=== PATIENT | female | born 1990 | race Caucasian/White ===

== ENCOUNTER → 2018-04-03 15:49 | Outpatient (CLI) | payer OTHER, SELFPAY | PROVIDERS: Family Provider Family Medicine; PCP Family Medicine | DX: Z23 Encounter for immunization (principal) | CPT/HCPCS: 90471; 90686 ==

== ENCOUNTER → 2018-08-06 07:12 | Outpatient (CLI) | payer OTHER, SELFPAY ==
--- NOTE | 2018-08-06 | DI.US.S_ITS ---
PROCEDURE: US OB <= 14 WEEKS FETUS INDICATIONS: SIZE AND DATING OUTSIDE/PRIOR DATING DATA: Last menstrual period (LMP): 06/10/18. LMP-based estimated date of delivery (NANCY): 03/17/19. First dating scan (date and location): This study, 08/06/18. Estimated date of delivery (NANCY) from first dating scan: 03/17/19. TECHNIQUE: Real-time scanning was performed of the fetus and maternal pelvic organs, with image documentation. Endovaginal scanning was also performed to better visualize the fetus and maternal ovaries. COMPARISON: None. FINDINGS: Embryo: There is a single living intrauterine gestation with crown-rump length of 1.7 cm correlated with a gestational age of 8 weeks 1 day, with heart rate 158 beats per minute. Measurement variability in dating: +/- 4 weeks by LMP, +/- 7 days by mean sac diameter (use before 6 weeks gestation if crown-rump length not able to be measured), +/- 5 days by crown-rump length (up to 8 weeks 6 days gestation), +/- 7 days by crown-rump length (up to 13 weeks 6 days gestation). Maternal organs: Ovaries normal considering gestational status. Limited images through the kidneys demonstrate no hydronephrosis. IMPRESSION: Single living intrauterine gestation with gestational age estimate currently 8 weeks 1 day with delivery date projected be centered on 03/17/19, plus or -5 days. Followup anatomic survey at approximately 21 weeks gestation is recommended. Dictated by: Jose R Vyas M.D. on 08/06/2018 at 10:12 Approved by: Jose R Vyas M.D. on 08/06/2018 at 10:14
== END ==
PROVIDERS: Family Provider Family Medicine; PCP Family Medicine; Visit Provider Family Medicine
DX: Z34.91 Encounter for supervision of normal pregnancy, unspecified, first trimester (principal); Z3A.08 8 weeks gestation of pregnancy
CPT/HCPCS: 76801

== ENCOUNTER → 2018-10-28 10:25 | Outpatient (CLI) | payer OTHER, SELFPAY ==
--- NOTE | 2018-10-28 | DI.US.S_ITS ---
PROCEDURE: US OB >= 14 WEEKS FETUS INDICATIONS: ANATOMY SCAN OUTSIDE/PRIOR DATING DATA: Last menstrual period (LMP): 06/10/18. LMP-based estimated date of delivery (NANCY): 03/17/19. First dating scan (date and location): 08/06/18, [facility]. Estimated date of delivery (NANCY) from first dating scan: 03/17/19. TECHNIQUE: Real-time scanning was performed of the fetus, with image documentation and biometric measurements. COMPARISON: None. FINDINGS: General: A single living intrauterine gestation is present. Presentation: Cephalic. Placenta: Placental position is posterior and fundal, without previa. Amniotic fluid index: 15.1 cm , normal range is 5-24 cm. heart rate: 150 beats per minute. Maternal cervical canal: 3.9 cm long. Normal lower limit is 2.5 cm. biometrics: Biparietal diameter: 4.7 cm, 20 weeks one day Head circumference: 17.4 cm, 19 weeks 6 days Abdominal circumference: 16.2 cm, 21 weeks 2 days Femur length: 2.9 cm, 19 weeks zero days Estimated gestational age from initial scan: not applicable. Composite gestational age from present scan: 19 weeks 6 days Estimated weight and percentile: 338 g, 57th percentile Measurement variability for biometric dating: +/- 7 days from 14 weeks to 15 weeks 6 days gestation, +/- 10 days from 16 weeks to 21 weeks 6 days gestation, +/- 2 weeks from 22 weeks to 27 weeks 6 days gestation, +/- 3 weeks for 28 weeks gestation or later. weight reference: 4500 g or EFW >90/95% is considered macrosomia or large for gestational age. EFW <10% is small for gestational age. EFW 5% or less is considered intra-uterine growth restriction. Anatomic survey: Neuro: Ventricles are non-dilated at less than 10 mm. There is a complex left choroid plexus cyst measuring 0.7 x 0.3 x 0.3 cm. There is a complex right choroid plexus cyst measuring 0.6 x 0.5 x 0.4 cm. Cisterna magna is normal at 3-11 mm. Cerebellum is normal in size and morphology. Nuchal skin fold: Normal at less than 6 mm between 14-21 weeks gestational age. Face: Nose and lips, facial profile are normal. Spine: No evidence for spina bifida. Heart: 4-chambered heart is present, with normal ventricular outflow tracts. Diaphragm: Diaphragm is intact. Stomach: Left-sided stomach is present. Kidneys: No hydronephrosis. Normal is less than 5 mm in 2nd trimester, less than 7 mm in 3rd trimester. Cord: 3-vessel cord has orthotopic insertion. Bladder: Normal in size. Extremities: All 4 extremities identified. IMPRESSION: 1. Living second trimester intrauterine . Ultrasound age is one day less than clinical age. 2. Bilateral choroid plexus cysts. 3. anatomic survey otherwise unremarkable. Dictated by: Saurabh Pino M.D. on 10/28/2018 at 18:23 Approved by: Saurabh Pino M.D. on 10/28/2018 at 18:29
== END ==
PROVIDERS: PCP Family Medicine; Visit Provider Family Medicine
DX: Z36.89 Encounter for other specified antenatal screening (principal); Z3A.19 19 weeks gestation of pregnancy
CPT/HCPCS: 76811

== ENCOUNTER → 2019-02-20 07:11 | Outpatient (CLI) | payer OTHER, SELFPAY ==
--- NOTE | 2019-02-20 | DI.US.S_ITS ---
PROCEDURE: US OB LIMITED INDICATIONS: MEASURING SMALLER THAN DATES OUTSIDE/PRIOR DATING DATA: Last menstrual period (LMP): 06/10/18. LMP-based estimated date of delivery (NANCY): 03/17/19. First dating scan (date and location): 08/06/18. Estimated date of delivery (NANCY) from first dating scan: 03/17/19. TECHNIQUE: Real-time scanning was performed of the fetus, with image documentation and biometric measurements. Endovaginal scanning: Not needed for this study COMPARISON: Prior OB ultrasound 08/06/18 and also 10/28/18. FINDINGS: General: A single living intrauterine gestation is present. Presentation: Vertex. Placenta: Placental position is posterior grade 2, without previa. Amniotic fluid index: 11.3 cm, normal range is 5-24 cm. heart rate: 132 beats per minute. biometrics: Biparietal diameter: 8.6 cm, 34 weeks 6 days Head circumference 31.0 cm, 34 weeks 5 days Abdominal circumference: 30.3 cm, 34 weeks 2 days Femur length: 6.4 cm, 33 weeks 2 days Estimated gestational age from initial scan: 36 weeks 3 days Composite gestational age from present scan: 34 weeks 2 days Estimated weight and percentile: 2338 g, lower 6th percentile Measurement variability for biometric dating: +/- 7 days from 14 weeks to 15 weeks 6 days gestation, +/- 10 days from 16 weeks to 21 weeks 6 days gestation, +/- 2 weeks from 22 weeks to 27 weeks 6 days gestation, +/- 3 weeks for 28 weeks gestation or later. weight reference: 4500 g or EFW >90/95% is considered macrosomia or large for gestational age. EFW <10% is small for gestational age. EFW 5% or less is considered intra-uterine growth restriction. Other: Not applicable. IMPRESSION: The current estimated weight is at the low 6th percentile, but overall there has been appropriate interval growth with reference to prior OB ultrasound studies. Estimated date of delivery is centered on 03/17/19. No anomalies seen. Dictated by: Jose R Vyas M.D. on 02/20/2019 at 8:28 Approved by: Jose R Vyas M.D. on 02/20/2019 at 8:39
== END ==
PROVIDERS: PCP Family Medicine; Visit Provider Family Medicine
DX: Z36.4 Encounter for antenatal screening for fetal growth retardation (principal); Z3A.34 34 weeks gestation of pregnancy
CPT/HCPCS: 76815

== ENCOUNTER → 2019-02-23 17:22 | Outpatient (ROUT) | payer OTHER, SELFPAY | PROVIDERS: PCP Family Medicine; Visit Provider Family Medicine | DX: Z34.00 Encounter for supervision of normal first pregnancy, unspecified trimester (principal) | CPT/HCPCS: 87081 ==

== ENCOUNTER → 2019-03-10 07:09 | Outpatient (CLI) | payer OTHER, SELFPAY ==
--- NOTE | 2019-03-10 | DI.US.S_ITS ---
PROCEDURE: US OB LIMITED INDICATIONS: SGA OUTSIDE/PRIOR DATING DATA: Last menstrual period (LMP): 06/10/18. LMP-based estimated date of delivery (NANCY): 03/17/19. First dating scan (date and location): 08/06/18. Estimated date of delivery (NANCY) from first dating scan: 03/17/19. TECHNIQUE: Real-time scanning was performed of the fetus, with image documentation and biometric measurements. Endovaginal scanning: No COMPARISON: [facility], OB LIMITED, 02/20/2019, 7:27. FINDINGS: General: A single living intrauterine gestation is present. Presentation: Vertex. Placenta: Placental position is left posterior, without previa. Amniotic fluid index: 8.0 cm, normal range is 5-24 cm. heart rate: 143 beats per minute. Maternal cervical canal: Not well-visualized biometrics: Biparietal diameter: 36 weeks 6 days Head circumference: 36 weeks 3 days Abdominal circumference: 37 weeks 2 days Femur length: 35 weeks 6 days Estimated gestational age from initial scan: 39 weeks 0 days Composite gestational age from present scan: 36 weeks 4 days Estimated weight and percentile: Preserved arteriogram; 19 percentile Measurement variability for biometric dating: +/- 7 days from 14 weeks to 15 weeks 6 days gestation, +/- 10 days from 16 weeks to 21 weeks 6 days gestation, +/- 2 weeks from 22 weeks to 27 weeks 6 days gestation, +/- 3 weeks for 28 weeks gestation or later. weight reference: 4500 g or EFW >90/95% is considered macrosomia or large for gestational age. EFW <10% is small for gestational age. EFW 5% or less is considered intra-uterine growth restriction. Other: Not applicable. Echogenic shadowing structure visualized within the right upper quadrant which may represent a gallstone. IMPRESSION: Single living IUP redemonstrated and interval growth is within normal limits Right upper quadrant calcification, possibly a gallstone. Recommend right upper quadrant ultrasound. Dictated by: Sukhjinder EDWARDS Interpreted: Tea Espino MD on 03/10/2019 at 8:19 Approved by: Tea Espino M.D. on 03/10/2019 at 15:58
== END ==
PROVIDERS: PCP Family Medicine; Visit Provider Family Medicine
DX: O36.5930 Maternal care for other known or suspected poor fetal growth, third trimester, not applicable or unspecified (principal); Z3A.36 36 weeks gestation of pregnancy
CPT/HCPCS: 76815

== ENCOUNTER 2019-03-18 09:04 | Inpatient (IN) | payer OTHER, SELFPAY ==
[2019-03-18 10:21] LABS: Add Manual Diff / Slide Review NO; Basophils Absolute Auto 0 /uL (0-100); Basophils Percent Auto 0.3 % (0-2); Eosinophils Absolute Auto 0 /uL (0-450); Eosinophils Percent Auto 0.2 % (2-4); Hematocrit 41.8 % (36-46); Lymphocytes Absolute Auto 1300 /uL (1100-4500); Lymphocytes Percent Auto 10.4 % (25-40); Mean Corpuscular HGB Conc 33.4 % (30-36); Mean Corpuscular Hemoglobin 32.3 PG (26-34); Mean Corpuscular Volume 96.7 fL (80-100); Monocytes Absolute Auto 1000 /uL (0-900); Monocytes Percent Auto 7.6 % (3-14); Neutrophils Absolute Auto 10400 /uL (1500-7000); Neutrophils Percent Auto 81.5 % (50-75); Platelet Count 151 X10^3/uL (150-400); Red Blood Cell Count 4.32 X10^6/uL (4.0-5.2); Red Cell Distribution Width 12.6 % (11.6-14.8); White Blood Cell Count 12.8 X10^3/uL (4.5-11.0)
[2019-03-18 10:40] VITALS: BP 105/72; BP 113/68; PULSE 81; RESP 16; TEMP 37
[2019-03-18] MEDS: LACTATED RINGERS 1,000 ML 100 ML IV (12:00)
[2019-03-18] MEDS: OXYTOCIN 10 UNIT/ML VIAL IM (14:08)
--- NOTE | 2019-03-18 14:42 | PM.OBPRVD ---
Labor & Delivery Delivery date: 03/18/19 Intrapartal events: None Cervical ripening method: none Induction method: none Delivery monitor: external FHT and external uterine Route of delivery: L&D Laceration Description: None Estimated blood loss (mL): 200 Anesthesia type: Epidural Complications: none Narrative: Identifying data: 28-year-old at 40 and 1 7 weeks estimated gestational age based on LMP and 1st trimester ultrasound who presents to Labor and delivery in active labor, 5 cm dilated and 90% effaced and 0 station. She has had no change in discharge. Denies leaking of fluid. She is at unremarkable . GBS negative, B positive, rubella immune, status post Tdap Stage I lasted 5 hours and 35 minutes. Uterine contractions began at about midnight on 03/18/2019. They progressed steadily worsened in intensity and became regular at approximately 4:00 a.m. and 8:00 a.m. they said they became more intense and she presented to labor and delivery. She was intact. She is felt to be in active labor at that time was requesting an epidural which was placed with some difficulty. Apparently the initial 2 attempts were in a blood vessel and 3rd attempt provided successful anesthesia. When the nurse was cleaning her she noted evidence of a bulging amniotic sac and when I checked the patient she was nearly complete with a bulging bag of water. She was able to labor down and artificial rupture membranes was performed at 1:35 p.m. and remarkable of clear fluid and patient was noted to be complete at that time. The external heart monitor was used throughout this stage showing a baseline 120s to 130s with moderate variability and accelerations and occasional variable deceleration. As patient was laboring down and still had intact the water there were T-cells to the 70s to 80s without any changes in position and this seemed to recover with artificial rupture membranes and repositioning and oxygen and we began to push. Stage II lasted 26 minutes When patient even moved to be placed in the stirrups the head was noted to descend. Baby was at +2 station when we began pushing. Patient pushed effectively and quickly head was . She was able to allow stretching to occur. External heart monitor baseline the 120s with moderate variability and variable D cells with pushing and early decelerations with contractions down to the 90s with good recovery and moderate variability and overall category 1 tracing. External tocometer used as well. Mom continued to push the baby was in SAMIR position presentation and the head was delivered without difficulty and palpated for cord and quickly anterior and posterior shoulders were delivered and baby was placed on mom's chest and was vigorous at delivery. Apgars were 9 at 1 minute and 9 at 5 minutes and weight is pending. Estimated blood loss is 200 cc Stage III lasted for minutes and resulted in the normal spontaneous vaginal delivery of an intact [id number] calcified placenta with a central cord insertion and a three-vessel cord. There were some very small amount of amniotic membranes protruding from the cervix which were removed and fundus was very firm. Tendon use of Pitocin were given IM. Bleeding was very minimal. Perineum was intact no vaginal or cervical or sidewall lacerations and there was a 3 mm superficial left periurethral laceration that was not repaired. At the time this dictation both mom and baby are in stable condition.
[2019-03-18] MEDS: IBUPROFEN 600 MG TABLET PO (19:43)
[2019-03-19] MEDS: IBUPROFEN 600 MG TABLET PO ×2 (01:40→08:04)
[2019-03-19] MEDS: PRENATAL VIT,CALC/IRON/FOLIC 1 TABLET 1 TAB PO (08:04)
[2019-03-19] MEDS: DOCUSATE 250 MG CAPSULE PO (08:04)
--- NOTE | 2019-03-19 13:37 | PM.OBDS.1 ---
Discharge Providers Provider Date of admission: 03/18/19 09:04 Discharge Date: 03/19/19 Primary care physician: Catarina Pandey MD Consults: 03/18/19 14:40 Consult to Public Finance Specialist Routine Comment: Discharge provider: Bello Ramsay MD Summary Hospital Course Procedures: Normal spontaneous vaginal delivery Hospital Course: Patient delivered and was transferred to recovery. No other changes. She recovered well. Had minimal bleeding minimal pain was up moving appetite was good and was requesting to go home. Patient will be discharged home with follow-up with Dr. Pandey routine education done Peripartum Data Delivery Method: Natural Vaginal Laceration description: None Episiotomy description: None Procedures: A ROM near delivery complications: none Time Spent with Patient Time attestation: Total time spent providing and/or coordinating discharge services: Objective Labs Result Diagrams: 03/18/19 10:00 Exam Narrative Exam Narrative: Alert smiling female in no acute distress. Lungs are clear heart regular rate and rhythm abdomen shows firm uterus. Extremities normal Discharge Plan Discharge Plan Patient Disposition: Home Discharge Med Rec/Prescriptions Prescriptions: New ibuprofen 600 mg Tablet 600 mg PO Q6HR PRN (Reason: Pain, Mild (1-3)) 30 Days RF: 0 Continued multivitamin [Multiple Vitamins] 1 EACH tablet 1 tab PO QDAY Qty: 90 RF: 3 Follow up/Referrals: Bello Ramsay MD [Physician] - Catarina Pandey MD [Primary Care Provider] - 6 Weeks Provider Discharge Instructions Diet: Diet as Tolerated Activity: as tolerated. no sexual activity for five weeks Skin/Wound/Dressing Care Report to your healthcare provider any signs of infection, such as:: chills, fever and increased pain Discharge Data Primary Care Provider: Catarina Pandey Attending Provider: Catarina Pandey Admit Date/Time: 03/18/19 09:04
== END 2019-03-19 15:40 | disposition home or self-care (01) | DRG 807 ==
PROVIDERS: Admitting Provider Family Medicine; PCP Family Medicine; Visit Provider Family Medicine
DX: O71.82 Other specified trauma to perineum and vulva (principal); Z37.0 Single live birth; Z3A.40 40 weeks gestation of pregnancy
CPT/HCPCS: 01967; 59050; 85025; 86850; 86900; 86901; G0379; J2590

== ENCOUNTER → 2019-08-22 08:20 | Outpatient (CLI) | payer OTHER, SELFPAY ==
[2019-08-22 08:57] LABS: Influenza A - CEPHEID Flu A POSITIVE (NEGATIVE); Influenza B - CEPHEID Flu B NEGATIVE (NEGATIVE)
== END ==
PROVIDERS: PCP Family Medicine; Visit Provider Nurse Practitioner
DX: R68.89 Other general symptoms and signs (principal)
CPT/HCPCS: 87502

== ENCOUNTER → 2023-06-05 11:28 | Outpatient (CLI) | payer OTHER, SELFPAY ==
--- NOTE | 2023-06-05 | DI.RAD.S_ITS ---
PROCEDURE: XR DEXA AXIAL SKELETON INDICATIONS: OSTEOPENIA IN MULTIPLE SITES COMPARISON: None. FINDINGS: This blank DEXA report has been sent in error by the PACS system. The correct and complete report will be forthcoming in 1-2 days. Thank you for your patience and understanding. Dictated by: Valdemar Malloy M.D. on 06/05/2023 at 13:37 Approved by: Valdemar Malloy M.D. on 06/05/2023 at 13:37
--- NOTE | 2023-06-05 11:48 | DI.DEXA.S_ITS ---
Bone Density Report Name: AAMIR COHEN Age: 32 Sex: Female Ethnicity: White Date of : 1990 Indication: Referring Provider: ELMER WOO Study: Bone densitometry was performed. Exam Date: June 05, 2023 Accession number: [id number] Bone Density: Region BMD T-score Z-score Classification AP Spine(L1-L4) 1.036 -0.1 Femoral Neck (Left) 0.802 -0.3 Total Hip (Left) 0.867 -0.6 Femoral Neck (Right) 0.759 -0.7 Total Hip (Right) 0.815 -1.0 Total Hip Mean 0.841 -0.8 World Health Organization criteria for BMD impression classify patients as: Normal (T-score at or above -1.0), Osteopenia (T-score between -1.0 and -2.5), or Osteoporosis (T-score at or below -2.5). 10-year Fracture Risk: FRAX not reported because: Premenopausal woman Previous Exams: -- Region Exam Age BMD T-score BMD Change BMD Change Date g/cm2 vs Baseline vs Previous -- AP Spine (L1-L4) 06/05/2023 32 1.036 0.031 (3.1%)# 0.031 (3.1%)# 08/17/2016 26 1.005 Total Hip(Left) 06/05/2023 32 0.867 0.064 (8.0%)# 0.064 (8.0%)# 08/17/2016 26 0.803 Total Hip(Right) 06/05/2023 32 0.815 0.005 (0.6%)# 0.005 (0.6%)# 08/17/2016 26 0.810 -- *Denotes significance at 95% confidence level, LSC for AP Spine = 0.022 g/cm2, LSC for Total Hip = 0.027 g/cm2 # Denotes dissimilar scan types or analysis methods Impression: The patient's bone mass is within expected range for age, gender and ethnicity. No significant bone loss was observed. Discussion: BONE DENSITY IS WITHIN EXPECTED LIMITS FOR AGE, SEX AND RACE. Bone density is within expected limits for age, sex and race at all sites measured. The patient should follow a healthful lifestyle (good nutrition with adequate calcium and vitamin D, and appropriate weight-bearing exercise). Follow-Up: Consider repeating this study in 5 years or sooner if there is some new clinical indication. Reported by: JAMIE DU M.D. on 06/05/2023 11:56:00 AM.a
== END ==
PROVIDERS: PCP Family Medicine; Referring Provider Family Medicine; Visit Provider Family Medicine
DX: M85.89 Other specified disorders of bone density and structure, multiple sites (principal); Z86.59 Personal history of other mental and behavioral disorders
CPT/HCPCS: 77080

== ENCOUNTER → 2024-01-15 13:53 | Outpatient (CLI) | payer OTHER, SELFPAY ==
--- NOTE | 2024-01-15 13:56 | DI.RAD.S_ITS ---
PROCEDURE: XR HAND LT MIN 3V INDICATIONS: POLYARTHRAGLIA TECHNIQUE: 3 views of the hand(s) acquired. COMPARISON: None. FINDINGS: Bones: No fractures or dislocations. Carpal bones are normally aligned. No suspicious bony lesions. Soft tissues: No suspicious soft tissue calcifications. IMPRESSION: No appreciable arthritic change. Dictated by: Tea Espino M.D. on 01/15/2024 at 17:01 Approved by: Tea Espino M.D. on 01/15/2024 at 17:02
--- NOTE | 2024-01-15 13:57 | DI.RAD.S_ITS ---
PROCEDURE: XR HAND RT MIN 3V INDICATIONS: POLYARTHRAGLIA TECHNIQUE: 3 views of the hand(s) acquired. COMPARISON: None. FINDINGS: Bones: No fractures or dislocations. Carpal bones are normally aligned. No suspicious bony lesions. Soft tissues: No suspicious soft tissue calcifications. IMPRESSION: No appreciable arthritic change. Dictated by: Tea Espino M.D. on 01/15/2024 at 17:02 Approved by: Tea Espino M.D. on 01/15/2024 at 17:02
== END ==
PROVIDERS: PCP Family Medicine; Referring Provider Registered Nurse; Visit Provider Registered Nurse
DX: M25.50 Pain in unspecified joint (principal); L30.9 Dermatitis, unspecified
CPT/HCPCS: 73130

== ENCOUNTER → 2024-05-14 15:58 | Outpatient (CLI) | payer OTHER, SELFPAY ==
--- NOTE | 2024-05-14 15:59 | DI.US.S_ITS ---
PROCEDURE: US PELVIC COMPLETE INDICATIONS: BLEEDING TECHNIQUE: Real-time scanning was performed of the pelvic organs, with image documentation. Additional endovaginal scanning was necessary due to incomplete visualization of the adnexal and endometrial structures by transabdominal scanning. COMPARISON: None. FINDINGS: Uterus: Uterus is anteverted and normal in size at 9.3 x 4.8 x 3.7 cm. The myometrium is homogeneous. The endometrium measures 7.9 mm combined thickness. Ovaries: The right ovary measures 3.2 x 1.5 x 1.7 cm, with a calculated ovarian volume of 4.3 cc. The left ovary measures 3.4 x 2.2 x 2.0 cm, with a calculated ovarian volume of 7.8 cc. The ovaries have a normal sonographic appearance. Less than 12 follicles can be seen in each ovary. No adnexal masses are seen. Possible left ovarian corpus luteal cyst measuring 1.8 cm. Other: No pathologic free abdominal or pelvic fluid. IMPRESSION: No acute sonographic abnormality is seen in the pelvis. No intrauterine or ectopic . No adnexal mass. Approved by: Patrick Mccoy M.D. on 05/14/2024 at 17:00
== END ==
PROVIDERS: PCP Family Medicine; Referring Provider Family Medicine; Visit Provider Family Medicine
DX: N91.2 Amenorrhea, unspecified (principal)
CPT/HCPCS: 76830; 76856